=== PATIENT | female | born 1970 | race Caucasian/White ===

== ENCOUNTER 2016-04-21 07:32 | Day surgery (SDC) | payer BC ==
[2016-04-21] MEDS ORDERED: LIDOCAINE 2% MDV (20MG/ML) 20ML VIAL IV ONE (11:00)
[2016-04-21] MEDS ORDERED: MIDAZOLAM HCL 2MG/2ML VIAL IV ONE (11:00)
[2016-04-21] MEDS ORDERED: PROPOFOL 10 MG/ML VIAL IV ONE (11:00)
--- NOTE | 2016-04-27 10:01 | Operative Note ---
DATE OF SURGERY: 04/21/2016 REQUESTING PHYSICIAN: Karl Agrawal D.O. POSTOPERATIVE DIAGNOSIS: Normal colonic and terminal ileum lesions. OPERATION: COLONOSCOPY. Surgeon: Hans Hill D.O. Indication for Procedure: This is a 45-year-old female with family history of colon cancer who presented for a screening colonoscopy. Sedation: Sedation was per Anesthesia. Pulse oximetry was monitored throughout the duration of the procedure to maintain O2 saturation of 90% or greater. Supplemental oxygen was administered via nasal cannula. Cardiac and vital signs were monitored throughout the duration of the procedure, and they were stable. Description of the procedure of colonoscopy and risks and benefits of the procedure including the risk of bleeding and perforation, among others, were explained to the patient who voiced understanding and consented to have the procedure done. Physical exam was performed, and the patient was found stable for sedation. PROCEDURE: The patient was placed in the left lateral position and sedation was initiated. Digital rectal exam was performed and showed small internal hemorrhoids with no palpable rectal masses. The Olympus PCF-180AL colonoscope was then inserted into the rectum under direct visualization and advanced to the cecum without difficulty. The ileocecal valve and appendiceal orifice were identified and photographed. The colonic mucosa was carefully examined upon insertion of the colonoscope. There were no lesions noted. The ileocecal valve was intubated and in the terminal ileum the colonoscope was inserted for about 10 cm and it appeared normal. The colonoscope was then withdrawn while carefully examining the colonic mucosal surfaces. No lesions were noted. In the rectum, retroflexion was performed and grade 1 internal hemorrhoids were noted. The colonoscope was then withdrawn and the procedure was terminated. The patient tolerated the procedure well without immediate complications. She remained with stable vital signs and was transferred to the Recovery Room. PLAN AND RECOMMENDATIONS: 1. She is to be on a high-fiber diet. 2. She is to have a repeat colonoscopy for screening in 5 years. As always, thank you for allowing me to participate in the care of your patient. Hans Hill MD CC: Karl Agrawal D.O. [facility]ENTERMyke
== END 2016-04-21 09:57 | disposition home or self-care (01) ==
LOC: HOP 07:32
PROVIDERS: ATTEND Internal Medicine Gastroenterology
DX: Z80.0 Family history of malignant neoplasm of digestive organs (principal)
CPT/HCPCS: 81025